=== PATIENT | female | born 1955 | race Caucasian/White ===

== ENCOUNTER → 2024-05-03 17:04 | Outpatient (REF) | payer MEDICARE, SELFPAY | LOC: RAD 17:04 | PROVIDERS: ATTENDING PHYSICIAN Otolaryngology; FAMILY PHYSICIAN Family Medicine | DX: J33.9 Nasal polyp, unspecified (principal) | CPT/HCPCS: 70486 ==

== ENCOUNTER → 2024-05-09 10:37 | Outpatient (REF) | payer MEDICARE, SELFPAY | LOC: CLAB 10:37 | PROVIDERS: ATTENDING PHYSICIAN Otolaryngology | DX: J34.89 Other specified disorders of nose and nasal sinuses (principal) | CPT/HCPCS: 88305 ==